=== PATIENT | female | born 1995 | race Caucasian/White ===

== ENCOUNTER 2018-05-24 14:08 | Inpatient (IN) ==
[2018-05-30 07:13] VITALS: BP 122/71
== END 2018-05-30 13:30 | disposition home or self-care (01) | DRG 774 ==
LOC: N.LDOUT 14:08 → N.LD 14:10 → N.OB 05-28 10:33
PROVIDERS: ADMIT Obstetrics & Gynecology; ATTEND Obstetrics & Gynecology

== ENCOUNTER 2019-12-20 23:09 | Inpatient (IN) ==
[2019-12-21] MEDS ORDERED: ONDANSETRON 4 MG/2 ML VIAL IV ONE (01:04)
[2019-12-21] MEDS ORDERED: MORPHINE 4 MG/1 ML VIAL IV STA (01:04)
[2019-12-21 01:07] LABS: Basophils # 0.1 10*3/uL (0.0-0.2); Basophils % 0.6 % (0.0-0.8); Eosinophils % 16.5 % (0.00-10.9); Hemoglobin 13.3 GM/DL (12.0-16.0); Immature Granulocytes % 0.3 %; Immature Granulocytes Absolute 0.03 #; Lymphocytes # 2.6 10*3/uL (1.4-4.0); Lymphocytes % 21.4 % (21.3-54.2); Mean Corpuscular HGB Conc 33.3 GM/DL (32-36); Mean Corpuscular Volume 90.5 FL (87-102); Mean Platelet Volume 10.8 FL (9.6-12.0); Monocytes % 4.1 % (1.7-12.7); Neutrophils % 57.1 % (38.7-73.9); Platelet Count 355 T/CUMM (130-400); Red Blood Count 4.42 MC/CUMM (3.8-5.5); Red Cell Distribution Width 12.6 % (9.3-17.3); White Blood Count 11.9 T/CUMM (4-12)
[2019-12-21 01:26] LABS: Albumin 3.9 G/DL (3.4-5.0); Bilirubin,Total 0.8 MG/DL (0.2-1.0); Calcium 8.6 MG/DL (8.5-10.1); Total Protein 7.5 G/DL (6.4-8.3)
[2019-12-21 01:56] LABS: Lymphocytes 28 % (20-55); Segmented Neutrophils 68 % (50-85); Total Cells Counted 100
[2019-12-21 01:57] LABS: Ovalocytes 1+; Platelet Estimate Normal
[2019-12-21] MEDS: DEXTROSE 5% NACL 0.45% 1,000 ML IV SCH ×2 (03:15→13:12)
[2019-12-21 03:34] LABS: Amorphous Crystals,Urine Occasional /HPF (Few); Apearance,Urine CLEAR (Clear); Bilirubin,Urine Negative (Negative); Blood, Urine Small mg/dL (Negative); Calcium Oxalate Crystals,Urine Occasional /HPF (Few); Glucose,Urine (UA) Negative (Negative); Ketones,Urine Negative (Negative); Mucus,Urine Moderate /LPF (Occasional); Nitrite,Urine Negative (Negative); Protein,Urine Negative; RBC,Urine 1 /HPF (0-4); Squamous Epithelial Cell,Urine Occasional /HPF (0-10); Urine Color Yellow (Yellow); Urine Specific Gravity 1.006 (1.001-1.035); Urine Urobilinogen < 2.0 EU/DL (0.2-1.0); WBC,Urine 4 /HPF (0-6)
[2019-12-21 03:37] LABS: PT Patient Result 10.6 SECS (9.6-12.2); Partial Thromboplastin Time 25.5 SECS (20.8-36.0)
[2019-12-21] MEDS: ONDANSETRON 4 MG/2 ML VIAL IV PRN ×2 (06:34→21:06)
[2019-12-21] MEDS: MORPHINE 4 MG/1 ML VIAL IV PRN ×3 (06:35→21:07)
[2019-12-21] MEDS ORDERED: INFLUENZA VIRUS VACCINE 0.5 ML SYRINGE IM ONE (09:00)
[2019-12-21] MEDS ORDERED: ceFAZolin 1,000 MG VIAL ONE (15:18)
[2019-12-21] MEDS ORDERED: MAGNESIUM HYDROXIDE SUSP 30 ML UDCUP PO PRN (16:24)
[2019-12-21] MEDS ORDERED: HYDROmorphone 2 MG/1 ML VIAL ONE (16:42)
[2019-12-21] MEDS ORDERED: ONDANSETRON 4 MG/2 ML VIAL ONE ×2 (16:42→16:50)
[2019-12-21] MEDS ORDERED: ONDANSETRON 4 MG/2 ML VIAL IV PRN (16:45)
[2019-12-21] MEDS: HYDROmorphone 2 MG/1 ML VIAL IV PRN ×4 (16:45→17:05)
[2019-12-21] MEDS ORDERED: SEVOFLURANE 1 UNIT/15 MINUTE INH ONE (16:49)
[2019-12-21] MEDS ORDERED: fentaNYL 100 MCG/2 ML VIAL ONE (16:49)
[2019-12-21] MEDS ORDERED: propofoL 200 MG/20 ML VIAL IV ONE (16:49)
[2019-12-21] MEDS ORDERED: DEXAMETHASONE 4 MG/1 ML VIAL ONE (16:49)
[2019-12-21] MEDS ORDERED: MIDAZOLAM 2 MG/2 ML VIAL ONE (16:49)
[2019-12-21] MEDS ORDERED: LIDOCAINE 2% 5 ML VIAL ONE (16:49)
[2019-12-21] MEDS ORDERED: LACTATED RINGERS 2,000 ML IV ONE (16:50)
[2019-12-21] MEDS ORDERED: KETOROLAC 30 MG/1 ML VIAL ONE (16:50)
[2019-12-21] MEDS: oxyCODONE/ACETAMINOPHEN 5-325 MG TABLET PO PRN ×2 (19:00→23:11)
[2019-12-21] MEDS: diphenhydrAMINE CAP 25 MG CAPSULE PO PRN (19:30)
[2019-12-21] MEDS: ceFAZolin 1,000 MG in SYRINGE 1 EACH IV SCH (23:10)
[2019-12-22] MEDS: MORPHINE 4 MG/1 ML VIAL IV PRN ×4 (00:56→23:38)
[2019-12-22] MEDS: DEXTROSE 5% NACL 0.45% 1,000 ML IV SCH ×3 (03:18→23:43)
[2019-12-22] MEDS: ceFAZolin 1,000 MG in SYRINGE 1 EACH IV SCH (06:19)
[2019-12-22] MEDS: oxyCODONE/ACETAMINOPHEN 5-325 MG TABLET PO PRN ×3 (09:32→16:26)
[2019-12-22] MEDS: ONDANSETRON 4 MG/2 ML VIAL IV PRN (14:45)
[2019-12-22] MEDS ORDERED: FLUCONAZOLE 150 MG TABLET PO ONE (14:59)
[2019-12-22] MEDS: diphenhydrAMINE CAP 25 MG CAPSULE PO PRN (17:59)
[2019-12-23] MEDS: MORPHINE 4 MG/1 ML VIAL IV PRN ×5 (03:03→20:40)
[2019-12-23] MEDS: oxyCODONE/ACETAMINOPHEN 5-325 MG TABLET PO PRN ×2 (13:21→22:55)
[2019-12-23] MEDS: DEXTROSE 5% NACL 0.45% 1,000 ML IV SCH ×2 (14:10→15:41)
[2019-12-24] MEDS: MORPHINE 4 MG/1 ML VIAL IV PRN ×2 (00:47→07:24)
[2019-12-24] MEDS: DEXTROSE 5% NACL 0.45% 1,000 ML IV SCH ×2 (01:54→10:31)
[2019-12-24 08:19] VITALS: BP 122/89
[2019-12-24] MEDS: oxyCODONE/ACETAMINOPHEN 5-325 MG TABLET PO PRN (10:30)
== END 2019-12-24 14:55 | disposition home or self-care (01) | DRG 494 ==
LOC: EDUNIT# → EDBD → N.ED 23:09 → N.EDINP 23:09 → N.3E 12-21 02:17
PROVIDERS: ADMIT Orthopaedic Surgery; ATTEND Orthopaedic Surgery

== ENCOUNTER 2021-02-11 14:33 | Inpatient (IN) ==
[2021-02-11 15:14] LABS: Basophils % 0.2 % (0.0-0.8); Eosinophils % 0.5 % (0.00-10.9); Hematocrit 33.1 VOL% (35.7-47.0); Hemoglobin 11.3 GM/DL (12.0-16.0); Immature Granulocytes % 0.3 %; Immature Granulocytes Absolute 0.02 #; Lymphocytes # 1.3 10*3/uL (1.4-4.0); Lymphocytes % 20.2 % (21.3-54.2); Mean Corpuscular HGB Conc 34.1 GM/DL (32-36); Mean Corpuscular Volume 90.4 FL (87-102); Mean Platelet Volume 10.2 FL (9.6-12.0); Neutrophils % 70.8 % (38.7-73.9); Platelet Count 183 T/CUMM (130-400); Red Blood Count 3.66 MC/CUMM (3.8-5.5); Red Cell Distribution Width 12.2 % (9.3-17.3); White Blood Count 6.5 T/CUMM (4-12)
[2021-02-11 15:24] LABS: INR 0.9; PT Patient Result 9.9 SECS (9.8-11.9); Partial Thromboplastin Time 25.4 SECS (23.9-33.8)
[2021-02-11] MEDS ORDERED: hydrALAZINE 20 MG/1 ML VIAL IV ONE ×2 (15:32→18:19)
[2021-02-11] MEDS ORDERED: LABETALOL 200 MG TABLET PO ONE (15:34)
[2021-02-11 15:43] LABS: Alanine Aminotransferase 10 U/L (13-56); Albumin 2.5 G/DL (3.4-5.0); Alkaline Phosphatase 162 U/L (45-117); Aspartate Amino Transferase 17 U/L (0-37); Bilirubin,Direct < 0.100 MG/DL (0.0-0.20); Bilirubin,Total < 0.39 MG/DL (0.2-1.0); Blood Urea Nitrogen 6 MG/DL (7-18); Calcium 8.5 MG/DL (8.5-10.1); Carbon Dioxide 26 MMOL/L (21-32); Estimated Glom Filtration Rate 123 ML/MIN; Glucose 117 MG/DL (74-106); Osmolality,Calculated 277.4 MOS/KG (273-304); Potassium 2.7 MMOL/L (3.5-5.1); Sodium 140 MMOL/L (136-145); Total Protein 6.2 G/DL (6.4-8.2)
[2021-02-11 16:04] LABS: Bacteria,Urine Few /HPF (Few); Bilirubin,Urine Negative (Negative); Blood, Urine Negative (Negative); Glucose,Urine (UA) Negative (Negative); Ketones,Urine Negative (Negative); Mucus,Urine Occasional /LPF (Occasional); Nitrite,Urine Negative (Negative); Protein,Urine 30 MG/DL; Squamous Epithelial Cell,Urine Occasional /HPF (0-10); Urine Appearance CLOUDY (Clear); Urine Color Yellow (Yellow); Urine Specific Gravity 1.015 (1.001-1.035); WBC,Urine 14 /HPF (0-6)
[2021-02-11] MEDS: LACTATED RINGERS 1,000 ML IV SCH ×2 (16:30→21:15)
[2021-02-11] MEDS ORDERED: ONDANSETRON 4 MG/2 ML VIAL IV PRN (16:40)
[2021-02-11] MEDS ORDERED: OXYTOCIN/LR 20 UNIT/1,000 ML BAG IV SCH (17:00)
[2021-02-11] MEDS ORDERED: FAMOTIDINE 20 MG/2 ML VIAL IV ONE (18:21)
[2021-02-11] MEDS ORDERED: CITRIC ACID/SODIUM CITRATE 30 ML UDCUP PO ONE (18:21)
[2021-02-11] MEDS ORDERED: NALOXONE 0.4 MG/ML VIAL IV PRN (18:21)
[2021-02-11] MEDS ORDERED: diphenhydrAMINE 50 MG/1 ML VIAL IV PRN ×2 (18:21)
[2021-02-11] MEDS ORDERED: LACTATED RINGERS 1,000 ML IV ONE (18:21)
[2021-02-11] MEDS ORDERED: ePHEDrine 50 MG/ML VIAL IV PRN (18:21)
[2021-02-11] MEDS ORDERED: hydrOXYzine HCL 25 MG/1 ML VIAL IM PRN (18:21)
[2021-02-11] MEDS ORDERED: PROMETHAZINE 25 MG/1 ML VIAL IM ONE (18:21)
[2021-02-11] MEDS ORDERED: fentaNYL 2 MCG/ROPIV 0.2% EPID 100 ML EPIDURAL SCH (18:30)
[2021-02-11] MEDS ORDERED: METHYLERGONOVINE 0.2 MG/1 ML AMP ONE (19:09)
[2021-02-11] MEDS ORDERED: miSOPROStoL 200 MCG TABLET ONE (19:09)
[2021-02-11] MEDS ORDERED: CARBOPROST TROMETHAMINE 250 MCG/ML AMP IM ONE (19:09)
[2021-02-11] MEDS ORDERED: TRANEXAMIC ACID 1,000 MG/10 ML VIAL ONE (19:09)
[2021-02-11 19:15] LABS: Barbiturates Screen,Urine Negative (Negative); Benzodiazepines Screen,Urine Negative (Negative); Cannabinoid Screen,Urine Negative (Negative); Opiate Screen,Urine Negative (Negative); Phencyclidine Screen,Urine Negative (Negative)
[2021-02-11] MEDS: POTASSIUM CHLORIDE 20 MEQ TABLET PO SCH (21:41)
[2021-02-11] MEDS ORDERED: SIMETHICONE CHEW 125 MG TABLET PO PRN (21:49)
[2021-02-12] MEDS: LABETALOL 200 MG TABLET PO SCH ×4 (00:20→23:56)
[2021-02-12] MEDS ORDERED: miSOPROStoL 200 MCG TABLET ONE (00:52)
[2021-02-12] MEDS ORDERED: TRANEXAMIC ACID 1,000 MG/10 ML VIAL ONE (00:52)
[2021-02-12] MEDS ORDERED: METHYLERGONOVINE 0.2 MG/1 ML AMP ONE (00:53)
[2021-02-12] MEDS ORDERED: CARBOPROST TROMETHAMINE 250 MCG/ML AMP IM ONE (00:53)
[2021-02-12] MEDS ORDERED: SODIUM CHLORIDE 0.9% 0 ML IV ONE (00:54)
[2021-02-12 01:58] LABS: Cord Venous Blood HCO3 24.2 MMOL/L; Cord Venous Blood PCO2 49.2 MMHG
[2021-02-12] MEDS ORDERED: ACETAMINOPHEN 325 MG TABLET PO PRN (02:06)
[2021-02-12] MEDS ORDERED: OXYTOCIN/LR 20 UNIT/1,000 ML BAG IV ONE (02:06)
[2021-02-12] MEDS ORDERED: WITCH HAZEL PADS 100/JAR TOP PRN (02:06)
[2021-02-12] MEDS ORDERED: LANOLIN 50% CREAM 0.3 OZ TUBE TOP PRN (02:06)
[2021-02-12] MEDS ORDERED: RHO(D) IMMUNE GLOBULIN 300 MCG SYRINGE IM ONE (02:06)
[2021-02-12] MEDS ORDERED: ONDANSETRON 4 MG/2 ML VIAL IV PRN (02:06)
[2021-02-12] MEDS ORDERED: oxyCODONE/ACETAMINOPHEN 5-325 MG TABLET PO PRN (02:06)
[2021-02-12] MEDS ORDERED: DIPH/TET/ACEL PERT BOOSTER VACCINE 0.5 ML VIAL IM ONE (02:06)
[2021-02-12] MEDS ORDERED: MEASLES/MUMPS/RUBELLA VACCINE 0.5 ML VIAL SUBCUT ONE (02:06)
[2021-02-12] MEDS ORDERED: BENZOCAINE 20%/MENTHOL 0.5% SPRAY 56 GM CAN TOP PRN (02:06)
[2021-02-12] MEDS ORDERED: HYDROCORTISONE 2.5% RECTAL CREAM 30 GM TUBE TOP PRN (02:06)
[2021-02-12] MEDS ORDERED: BISACODYL 10 MG SUPP RECTAL PRN (02:06)
[2021-02-12 05:38] LABS: Basophils % 0.2 % (0.0-0.8); Hematocrit 30.3 VOL% (35.7-47.0); Hemoglobin 10.2 GM/DL (12.0-16.0); Immature Granulocytes % 0.5 %; Immature Granulocytes Absolute 0.06 #; Lymphocytes # 1.2 10*3/uL (1.4-4.0); Lymphocytes % 9.4 % (21.3-54.2); Mean Corpuscular HGB Conc 33.7 GM/DL (32-36); Mean Corpuscular Volume 91.8 FL (87-102); Mean Platelet Volume 10.8 FL (9.6-12.0); Monocytes % 7.2 % (1.7-12.7); Neutrophils % 82.7 % (38.7-73.9); Platelet Count 164 T/CUMM (130-400); Red Cell Distribution Width 12.5 % (9.3-17.3); White Blood Count 12.7 T/CUMM (4-12)
[2021-02-12] MEDS: IBUPROFEN 800 MG TABLET PO PRN ×2 (05:40→16:00)
[2021-02-12] MEDS: DOCUSATE SODIUM 100 MG CAPSULE PO SCH ×2 (08:48→21:26)
[2021-02-12] MEDS: POTASSIUM CHLORIDE 20 MEQ TABLET PO SCH ×2 (08:48→21:26)
[2021-02-12] MEDS: oxyCODONE/ACETAMINOPHEN 5-325 MG TABLET PO PRN ×2 (10:47→16:02)
[2021-02-13] MEDS: oxyCODONE/ACETAMINOPHEN 5-325 MG TABLET PO PRN (00:06)
[2021-02-13] MEDS ORDERED: MAGNESIUM HYDROXIDE SUSP 30 ML UDCUP PO PRN (04:27)
[2021-02-13 05:24] LABS: Basophils % 0.2 % (0.0-0.8); Eosinophils # 0.1 10*3/uL (0.0-0.87); Eosinophils % 0.8 % (0.00-10.9); Hematocrit 25.8 VOL% (35.7-47.0); Hemoglobin 8.3 GM/DL (12.0-16.0); Immature Granulocytes % 0.2 %; Immature Granulocytes Absolute 0.02 #; Lymphocytes % 22.9 % (21.3-54.2); Mean Corpuscular HGB Conc 32.2 GM/DL (32-36); Mean Corpuscular Volume 95.6 FL (87-102); Mean Platelet Volume 10.2 FL (9.6-12.0); Monocytes % 7.1 % (1.7-12.7); Neutrophils % 68.8 % (38.7-73.9); Platelet Count 156 T/CUMM (130-400); Red Cell Distribution Width 12.9 % (9.3-17.3); White Blood Count 8.9 T/CUMM (4-12)
[2021-02-13 06:35] LABS: Lymphocytes 24 % (20-55); Platelet Estimate Adequate; Reactive Lymphocytes Few; Segmented Neutrophils 70 % (50-85); Total Cells Counted 100
[2021-02-13] MEDS: LABETALOL 200 MG TABLET PO SCH (08:39)
[2021-02-13] MEDS: POTASSIUM CHLORIDE 20 MEQ TABLET PO SCH (08:39)
[2021-02-13] MEDS: DOCUSATE SODIUM 100 MG CAPSULE PO SCH (08:40)
[2021-02-13 10:59] VITALS: BP 142/68
== END 2021-02-13 14:15 | disposition home or self-care (01) | DRG 560 ==
LOC: N.LDOUT 14:33 → N.LD 14:36 → N.OB 02-12 04:27
PROVIDERS: ADMIT Specialist; ATTEND Specialist

== ENCOUNTER 2021-02-14 22:26 | Observation (INO) ==
[2021-02-14] MEDS ORDERED: ONDANSETRON 4 MG/2 ML VIAL IV STA (23:31)
[2021-02-14] MEDS ORDERED: MORPHINE 4 MG/1 ML VIAL IV STA (23:31)
[2021-02-14] MEDS ORDERED: FUROSEMIDE 40 MG/4 ML VIAL IV STA (23:31)
[2021-02-14] MEDS ORDERED: LABETALOL 20 MG/4 ML SYRINGE IV STA (23:31)
[2021-02-15 00:40] LABS: Basophils % 0.3 % (0.0-0.8); Eosinophils % 0.5 % (0.00-10.9); Hematocrit 42.2 VOL% (35.7-47.0); Hemoglobin 13.6 GM/DL (12.0-16.0); Immature Granulocytes % 0.3 %; Immature Granulocytes Absolute 0.02 #; Lymphocytes # 0.7 10*3/uL (1.4-4.0); Lymphocytes % 11.3 % (21.3-54.2); Mean Corpuscular HGB Conc 32.2 GM/DL (32-36); Mean Corpuscular Volume 95.3 FL (87-102); Mean Platelet Volume 9.9 FL (9.6-12.0); Monocytes % 5.9 % (1.7-12.7); Neutrophils % 81.7 % (38.7-73.9); Platelet Count 184 T/CUMM (130-400); Red Blood Count 4.43 MC/CUMM (3.8-5.5); Red Cell Distribution Width 13.2 % (9.3-17.3); White Blood Count 6.4 T/CUMM (4-12)
[2021-02-15 00:55] LABS: Albumin 2.6 G/DL (3.4-5.0); Bilirubin,Total 0.6 MG/DL (0.2-1.0); Calcium 8.2 MG/DL (8.5-10.1); Osmolality,Calculated 278.3 MOS/KG (273-304); Potassium 3.4 MMOL/L (3.5-5.1); Total Protein 5.7 G/DL (6.4-8.2)
[2021-02-15 01:00] LABS: INR 0.9
[2021-02-15] MEDS ORDERED: POTASSIUM CHLORIDE 20 MEQ TABLET PO STA (01:11)
[2021-02-15 01:49] LABS: Bilirubin,Urine Negative (Negative); Blood, Urine Large mg/dL (Negative); Glucose,Urine (UA) Negative (Negative); Ketones,Urine Negative (Negative); Mucus,Urine Occasional /LPF (Occasional); Nitrite,Urine Negative (Negative); Protein,Urine 30 MG/DL; RBC,Urine 198 /HPF (0-4); Squamous Epithelial Cell,Urine Occasional /HPF (0-10); Urine Appearance Slightly Hazy (Clear); Urine Color Yellow (Yellow); Urine Specific Gravity 1.008 (1.001-1.035); Urine Urobilinogen < 2.0 EU/DL (0.2-1.0); WBC,Urine 32 /HPF (0-6)
[2021-02-15] MEDS ORDERED: PIPERACILLIN/TAZOBACTAM 3,375 MG in SODIUM CHLORIDE 0.9% 100 ML IV STA (02:00)
[2021-02-15] MEDS ORDERED: FUROSEMIDE 40 MG/4 ML VIAL IV STA (02:03)
[2021-02-15] MEDS ORDERED: LABETALOL 20 MG/4 ML SYRINGE IV STA (02:03)
[2021-02-15] MEDS ORDERED: MAGNESIUM HYDROXIDE SUSP 30 ML UDCUP PO PRN (04:43)
[2021-02-15] MEDS ORDERED: ACETAMINOPHEN 325 MG TABLET PO PRN (04:43)
[2021-02-15] MEDS ORDERED: MORPHINE 4 MG/1 ML VIAL IV PRN (04:43)
[2021-02-15] MEDS ORDERED: ONDANSETRON 4 MG/2 ML VIAL IV PRN (04:43)
[2021-02-15] MEDS ORDERED: MAGNESIUM SULF DRIP 40 GM/1,000 ML ML IV SCH (04:43)
[2021-02-15] MEDS ORDERED: BISACODYL 10 MG SUPP RECTAL PRN (04:43)
[2021-02-15] MEDS ORDERED: cefTRIAXone 1,000 MG in SODIUM CHLORIDE 0.9% 100 ML IV SCH (04:43)
[2021-02-15] MEDS ORDERED: IBUPROFEN 800 MG TABLET PO PRN (04:43)
[2021-02-15] MEDS ORDERED: SODIUM CHLORIDE 0.9% 1,000 ML IV SCH (04:43)
[2021-02-15 08:14] LABS: INR 0.9; PT Patient Result 9.8 SECS (9.8-11.9); Partial Thromboplastin Time 25.9 SECS (23.9-33.8)
[2021-02-15 08:20] LABS: Albumin 2.6 G/DL (3.4-5.0); Bilirubin,Direct 0.12 MG/DL (0.0-0.20); Bilirubin,Total 1.5 MG/DL (0.2-1.0); Calcium 7.8 MG/DL (8.5-10.1); Osmolality,Calculated 273.5 MOS/KG (273-304); Total Protein 6.1 G/DL (6.4-8.2); Uric Acid 4.3 MG/DL (2.6-6.0)
[2021-02-15] MEDS: PANTOPRAZOLE 20 MG TABLET PO SCH (10:36)
[2021-02-15] MEDS: LABETALOL 200 MG TABLET PO SCH ×2 (10:36→23:32)
[2021-02-15] MEDS: DOCUSATE SODIUM 100 MG CAPSULE PO SCH (10:36)
[2021-02-15] MEDS: cefTRIAXone 1,000 MG in SYRINGE 1 EACH IV SCH (11:35)
[2021-02-15] MEDS: POTASSIUM CHLORIDE 20 MEQ TABLET PO PRN ×4 (14:07→20:13)
[2021-02-15] MEDS ORDERED: hydrALAZINE 20 MG/1 ML VIAL IV PRN (16:05)
[2021-02-15] MEDS ORDERED: LACTATED RINGERS 1,000 ML IV SCH (20:30)
[2021-02-16 03:02] LABS: Basophils % 0.5 % (0.0-0.8); Eosinophils # 0.1 10*3/uL (0.0-0.87); Eosinophils % 1.8 % (0.00-10.9); Hematocrit 30.1 VOL% (35.7-47.0); Immature Granulocytes % 0.5 %; Immature Granulocytes Absolute 0.03 #; Lymphocytes # 1.3 10*3/uL (1.4-4.0); Lymphocytes % 19.9 % (21.3-54.2); Mean Corpuscular HGB Conc 32.9 GM/DL (32-36); Mean Corpuscular Volume 94.4 FL (87-102); Mean Platelet Volume 9.9 FL (9.6-12.0); Monocytes % 9.8 % (1.7-12.7); Neutrophils % 67.5 % (38.7-73.9); Platelet Count 232 T/CUMM (130-400); Red Blood Count 3.19 MC/CUMM (3.8-5.5); White Blood Count 6.5 T/CUMM (4-12)
[2021-02-16 03:09] LABS: Hemoglobin 9.9 GM/DL (12.0-16.0)
[2021-02-16 03:34] LABS: Albumin 2.2 G/DL (3.4-5.0); Bilirubin,Total 0.4 MG/DL (0.2-1.0); Calcium 6.1 MG/DL (8.5-10.1); Osmolality,Calculated 278.3 MOS/KG (273-304); Potassium 4.2 MMOL/L (3.5-5.1); Total Protein 5.4 G/DL (6.4-8.2)
[2021-02-16] MEDS: DOCUSATE SODIUM 100 MG CAPSULE PO SCH (04:31)
[2021-02-16] MEDS: PANTOPRAZOLE 20 MG TABLET PO SCH (08:14)
[2021-02-16] MEDS ORDERED: CALCIUM CARBONATE CHEW 500 MG TABLET PO SCH (09:00)
[2021-02-16] MEDS ORDERED: FUROSEMIDE 20 MG TABLET PO SCH (09:00)
[2021-02-16 11:16] VITALS: BP 134/90
[2021-02-16] MEDS: cefTRIAXone 1,000 MG in SYRINGE 1 EACH IV SCH (12:44)
== END 2021-02-16 13:05 | disposition home or self-care (01) ==
LOC: N.EDINP 22:26 → N.ED 22:26 → N.LD 02-15 04:24 → N.OB 02-15 07:27
PROVIDERS: ADMIT Specialist; ATTEND Specialist